=== PATIENT | male | born 1970 | race Caucasian/White ===

== ENCOUNTER 2023-09-07 14:41 | Emergency (ER) | payer OTHER, SELFPAY ==
--- NOTE | ~2023-09-07 | XR_ITS ---
EXAM: XR lumbar spine 2-3V DATE: 09/07/2023 15:33 HISTORY: ACUTE MID TO LEFT LBP . COMPARISON: None available. FINDINGS: 6 nonrib-bearing lumbar-type vertebral bodies which may be secondary to hypoplastic ribs a t T12 or true sixth lumbar type vertebral body. For the purposes of this exam the last fully formed d isc will be designated L5-S1. Pedicles intact. Normal vertebral body alignment. Lumbar vertebral body heights preserved. Mild anterior wedge deformity at T11 and T12. Multilevel mild degenerative disc d isease. Normal facets and posterior elements. No fracture or dislocation. Atherosclerotic aortic calc ifications without evident aneurysm. IMPRESSION: No acute fracture or traumatic malalignment detected in the lumbar spine. Mild anterior wedge deformity at T11 and T12, presumably physiologic/chronic, unless accompanied by a cute pain/tenderness. Reviewed, dictated and finalized at location K. [employer] IMPRESSION: No acute fracture or traumatic malalignment detected in the lumbar spine. Mild anterior wedge deformity at T11 and T12, presumably physiologic/chronic, u nless accompanied by acute pain/tenderness.
[2023-09-07 14:53] VITALS: BP 121/73; PULSE 73; RESP 18; TEMP 36.8; O2SAT 100
--- NOTE | 2023-09-07 14:54 | PC.NURSE ---
in br to obtain ua spec.
[2023-09-07 15:04] VITALS: BP 121/73; PULSE 73; RESP 18; TEMP 36.8; O2SAT 100
--- NOTE | 2023-09-07 15:14 | ED.GENADULT ---
HPI - General Adult General Chief complaint: Back Pain/Injury Stated complaint: Back pain/poss uti Time Seen by Provider: 09/07/23 15:14 Source: patient, family, RN notes reviewed and old records reviewed Mode of arrival: ambulatory Limitations: no limitations History of Present Illness HPI narrative: 53 year old male who presents to [facility] care with complaints of lumbar back pain which started about 1.5 weeks ago, he denies any known injury to his back. 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 Patient reports no radiation of pain down his legs, denies any difficulty with bowel or bladder function or any saddle paraesthesia. Patient questioned if he could have UTI and wants urine checked, no history of kidney stones or prior UTI or any present burning or pain with urination. MD complaint: lumbar back pain for 1.5 weeks Onset (ago): week(s) (1.5) Location: back (lumbar) Severity scale (1-10): 8 Exacerbating factors: movement Treatments prior to arrival: NSAID and other (Biofreeze) Related Data Allergies Allergy/AdvReac Type Severity Reaction Status Date / Time No Known Allergies Allergy Verified 09/07/23 14:49 Review of Systems Review of Systems: CONSTITUTIONAL: Denies fever, chills, or sweats. CARDIOVASCULAR: Denies chest pain, palpitations, or edema. RESPIRATORY: Denies cough or dyspnea. GASTROINTESTINAL: Denies abdominal pain, nausea, vomiting, or diarrhea. GENITOURINARY: Denies dysuria or hematuria. SKIN: Denies rash or itching. MUSCULOSKELETAL: Reports lumbar back pain with no radiation down legs or any known injury. or myalgia. NEUROLOGIC: Denies headache, numbness, or weakness. All systems reviewed & are unremarkable except as noted in HPI and below [facility] Past Medical History Medical History (Updated 09/09/23 @ 11:07 by Rachel Castillo NP) Fracture of multiple fingers Fracture, ribs Fracture, scapula Surgical History Surgical History (Updated 09/09/23 @ 10:55 by Rachel Castillo NP) History of testicular surgery for undescended testicle Social History Social History (Updated 09/09/23 @ 10:56 by Rachel Castillo NP) Living arrangements: with family Gender identity (if verbalized by the patient): Male Comments At time of signature, agree with nursing past medical, surgical, social and family history. There is no relevant family history pertinent to the presenting complaint Exam Narrative: GENERAL: Well-appearing, well-nourished, and in some acute distress. HEAD: Normocephalic, atraumatic. EYES: PERRLA and EOMI. NECK: Supple. No lymphadenopathy. CHEST: Clear to auscultation. No respiratory distress. SAO2 100% on room air HEART: Regular rate and rhythm. Distal pulses palpable and equal, cap refill <3 seconds ABDOMEN: Soft, nontender, nondistended, normal active bowel sounds, no palpable or pulsatile masses. No CVA tenderness MUSCULOSKELETAL: Normal range of motion and strength in all extremities; 5/5 strength with hip flexion and extension, dorsiflexion and extension, knee flexion and extension, plantar flexion and extension. Normal sensation in dermatomal distributions with sensitivity to light touch and pain, midline back tenderness to palpation. No paraspinal tenderness. Transfers from lying to sitting to standing with discomfort to lumbar back SKIN: Warm, dry, no rash. No ecchymosis, erythema, open wounds to back. NEURO: No focal deficits. Alert and oriented x3. Reflexes intact. cautious gait. PSYCH: Normal mood and affect Course Course Emergency Course: Patient is aware of diagnosis, understands and agrees to treatment plan. Anticipatory guidance given. Patient agrees to follow-up as directed and is aware of reasons to seek care at the emergency department. Portions of this record may have been created with voice recognition software Level of Care: Express Care Visit Vital Signs Vital signs: Vital Signs Tem
== END 2023-09-07 17:05 | disposition home or self-care (01) ==
PROVIDERS: Emergency Provider Registered Nurse; PCP Nurse Practitioner Family
DX: M54.50 Low back pain, unspecified (principal)
CPT/HCPCS: 72100; 81003; 99213; G0463

== ENCOUNTER 2024-04-12 16:06 | Emergency (ER) | payer OTHER, SELFPAY ==
--- NOTE | ~2024-04-12 | XR_ITS ---
EXAMINATION: XR shoulder LT min 2V DATE: 04/12/2024 16:52 INDICATION: Left shoulder pain. TECHNIQUE: 4 views of left shoulder were obtained. COMPARISON: None. FINDINGS: Alignment is normal. No acute fracture. There is an old healed fracture of left seventh rib . Joint spaces are normal. IMPRESSION: 1. No fracture. Reviewed, dictated and finalized at location A. IMPRESSION: 1. No fracture.
[2024-04-12 16:10] VITALS: BP 154/89; PULSE 68; RESP 20; TEMP 36.9; O2SAT 100
--- NOTE | 2024-04-12 16:21 | ED.GENADULT ---
HPI - General Adult General Chief complaint: Extremity Problem,Nontraumatic Stated complaint: Left shoulder and arm pain Time Seen by Provider: 04/12/24 16:21 Source: patient, RN notes reviewed and old records reviewed Mode of arrival: ambulatory Limitations: no limitations History of Present Illness HPI narrative: 54 year old male accompanied by presents to express care with complaints of left posterior shoulder pain which radiates down into left arm to the posterior elbow area and down to wrist. Patient reports that for the past 3-4 days he has had increased burning type of sensation down the arm, states felt like on fire last night. Patient reports that he has been taking Tylenol , Aleve and some left over muscle relaxers for his discomfort. Patient reports that he has applied ice and also some heat to posterior upper shoulder area. Patient report no tingling or numbness to his fingers, complaint: postrior sholder down to posterior elbow to wrist. Onset (ago): day(s) (increase 3-4 days) Severity scale (1-10): 3 Treatments prior to arrival: other (Aleve, Tylenol and some muscle relaxers) Related Data Allergies Allergy/AdvReac Type Severity Reaction Status Date / Time No Known Allergies Allergy Verified 09/07/23 14:49 Review of Systems Review of Systems: CONSTITUTIONAL: Denies fever, chills, or sweats. EYES: Denies visual changes, redness, or discharge. ENT: Denies rhinorrhea, congestion, sore throat, or otalgia. CARDIOVASCULAR: Denies chest pain, palpitations, or edema. RESPIRATORY: Denies cough or dyspnea. GASTROINTESTINAL: Denies abdominal pain, nausea, vomiting, or diarrhea. GENITOURINARY: Denies dysuria or hematuria. SKIN: Denies rash or itching. MUSCULOSKELETAL: Denies back pain,positive for left posterior shoulder down into arm to elbow to wrist with burning type of pain, or myalgia. NEUROLOGIC: Denies headache, numbness, or weakness. PSYCHIATRIC: Denies anxiety or depression. All systems reviewed & are unremarkable except as noted in HPI and below [facility] Past Medical History Medical History (Updated 04/12/24 @ 17:00 by Rachel Castillo NP) Fracture of multiple fingers Fracture, ribs Fracture, scapula right Surgical History Surgical History (Updated 09/09/23 @ 10:55 by Rachel Castillo NP) History of testicular surgery for undescended testicle Social History Social History (Updated 04/12/24 @ 17:00 by Rachel Castillo NP) Smoking status: Current every day smoker Tobacco type: cigarettes Living arrangements: with family Gender identity (if verbalized by the patient): Male Comments At time of signature, agree with nursing past medical, surgical, social and family history. There is no relevant family history pertinent to the presenting complaint Exam Narrative: GENERAL: Well-appearing, well-nourished, and in no acute distress. HEAD: Normocephalic, atraumatic. EYES: PERRLA and EOMI. ENT: Nares clear, no rhinorrhea or epistaxis. Mucous membranes moist, TM's normal, throat pink with no lesion NECK: Supple.no lymphadenopathy CHEST: Clear to auscultation. No respiratory distress.SAO2 100% on room air HEART: Regular rate and rhythm. No murmur heard. Normal peripheral pulses. ABDOMEN: Soft, nontender, nondistended, normal active bowel sounds. EXTREMITIES: Normal range of motion. No edema.Patient reports pain to the posterior shoulder area radiating down arm to posterior elbow with some pain down to wrist. Patient describes discomfort as burning type of discomfort, some limit of rotation noted, sensation and circulation intact, strong pulses to left arm, nail beds dasha briskly. SKIN: Warm, dry, no rash. NEURO: No focal deficits. Alert and oriented x3. Course Course Emergency Course: Patient is aware of diagnosis, understands and agrees to treatment plan.? Anticipatory guidance given.? Patient agrees to follow-up as directed and is aware of reasons to seek care at the emergency d
== END 2024-04-12 17:31 | disposition home or self-care (01) ==
PROVIDERS: Emergency Provider Registered Nurse; PCP Nurse Practitioner Family
DX: M25.512 Pain in left shoulder (principal); M79.622 Pain in left upper arm; M79.632 Pain in left forearm; F17.210 Nicotine dependence, cigarettes, uncomplicated
CPT/HCPCS: 73030; 99213; G0463